=== PATIENT | male | born 1980 | race Caucasian/White ===

== ENCOUNTER 2017-05-14 08:56 | Day surgery (SDC) | payer BC ==
[2017-05-08 10:56] LABS: BASOPHILS # (AUTO) 0.1 X10'3 (0-0.2); BASOPHILS % (AUTO) 1.3 % (0-1); EOSINOPHILS # (AUTO) 0.3 X10'3 (0-0.9); EOSINOPHILS % (AUTO) 3.6 % (0-6); MEAN CORPUSCULAR HEMOGLOBIN 30.2 PG (27.0-31.0); MEAN CORPUSCULAR HGB CONC 33.9 % (33.0-36.5); MEAN CORPUSCULAR VOLUME 89.3 FL (78-98); MEAN PLATELET VOLUME 7.5 FL (7.4-10.4); MONOCYTES # (AUTO) 0.6 X10'3 (0-0.9); MONOCYTES % (AUTO) 6.8 % (2-12); NEUTROPHILS % (AUTO) 66.3 % (42-75); PRE OP HEMATOCRIT 44.1 % (42.0-52.0); PRE OP HEMOGLOBIN 14.9 g/dL (14.0-17.9); PRE OP PLATELET COUNT 332 X10'3 (140-440); RED BLOOD COUNT 4.94 X10'6 (4.70-6.10); RED CELL DISTRIBUTION WIDTH 12.7 % (11.5-14.5)
[2017-05-08 10:59] LABS: CLARITY,URINE CLEAR (Clear); COLOR,URINE STRAW (Yellow); GLUCOSE, URINE NEGATIVE (Neg); KETONES,URINE NEGATIVE (Neg); LEUKOCYTE ESTERASE ,URINE NEGATIVE (Neg); NITRITES, URINE NEGATIVE (Neg); OCCULT BLOOD,URINE NEGATIVE (Neg); PROTEIN,URINE NEGATIVE (Neg); UROBILINOGEN,URINE 0.2 E.U/dL (0.2-1.0)
[2017-05-08 11:02] LABS: UA COLLECTION TYPE CLN CATCH MIDSTREAM
[2017-05-08 11:15] LABS: ALBUMIN 4.3 G/DL (3.4-5.0); ALBUMIN/GLOBULIN RATIO 1.1 (1.1-1.5); ALKALINE PHOSPHATASE 75 IU/L (46-116); BLOOD UREA NITROGEN 10 MG/DL (7-18); BUN/CREATININE RATIO 10.2 (5.4-32.0); CALCIUM 9.1 MG/DL (8.5-10.1); CHLORIDE 104 MMOL/L (99-107); CREATININE 0.98 MG/DL (0.60-1.10); PRE OP ALT 19 U/L (30-65); PRE OP ANION GAP 6 (8-16); PRE OP AST 14 U/L (10-37); PRE OP BILIRUB, TOTAL 0.3 MG/DL (0.0-1.0); PRE OP GLUCOSE 97 MG/DL (70-104); PRE OP POTASSIUM 3.9 MMOL/L (3.4-5.1); PRE OP SODIUM 140 MMOL/L (135-145); TOTAL CARBON DIOXIDE 30.3 MMOL/L (24-32); TOTAL PROTEIN 8.1 G/DL (6.4-8.2); eGFR 86 ML/MIN
[2017-05-14] VITALS (12 sets, daily range): BP systolic 93–114; BP diastolic 46–78
[~2017-05-14] VITALS: Ht 172.7 cm; Wt 65.5 kg
[~2017-05-14 08:56] MED LIST: NO HOME MEDS; cefazolin 1gm/NS 100mL 100 ML IV ONE; famotidine 20mg tablet PO ONE; ringers solution, lacted 1,000 ML IV SCH
[2017-05-14] MEDS ORDERED: LIDOcaine 1% (10mg/ml) 2ml vial ONE (09:20)
[2017-05-14] MEDS ORDERED: sevoflurane 250ml liquid IH ONE (10:00)
[2017-05-14] MEDS ORDERED: BUPIVAcaine 0.5% inj/PF 30 ML ONE (10:52)
[2017-05-14] MEDS ORDERED: BUPIVAcaine 0.5% inj/PF 30 ml vial IJ ONE (11:00)
[2017-05-14] MEDS ORDERED: fentaNYL/PF 50MCG/1 ML 2ML syringe ONE (11:03)
[2017-05-14] MEDS ORDERED: midazolam 2 mg/2 ml injection ONE (11:04)
[2017-05-14] MEDS ORDERED: propofol inj 20 ML IV ONE (11:07)
[2017-05-14] MEDS ORDERED: ondansetron/PF 4mg/2ml inj IV PRN (11:25)
[2017-05-14] MEDS ORDERED: proCHLORperazine 10 MG/2 ml inj IV PRN (11:25)
[2017-05-14] MEDS ORDERED: ringers solution, lacted 1,000 ML IV SCH (11:25)
[2017-05-14] MEDS ORDERED: meperidine/PF 25mg/ml syringe IV PRN ×2 (11:25)
[2017-05-14] MEDS: meperidine/PF 25mg/ml syringe IV PRN ×2 (12:18→13:10)
[2017-05-14] MEDS ORDERED: HYDROcodone/acetaminophen 10/325mg tab PO PRN (13:15)
== END 2017-05-14 13:52 | disposition home or self-care (01) ==
LOC: PAS 08:56
PROVIDERS: ATTEND Surgery
DX: K64.3 Fourth degree hemorrhoids (principal); K64.4 Residual hemorrhoidal skin tags; F41.8 Other specified anxiety disorders
CPT/HCPCS: 36415; 46260; 80053; 81003; 85025; A6224; A6449; J0690; J2175; J2250; J2704; J3010; J3490; J7120; A7000